=== PATIENT | female | born 1960 | race Caucasian/White ===

== ENCOUNTER 2019-07-09 20:30 | Emergency (ER) | payer BC ==
[2019-07-09] MEDS ORDERED: NS 0.9% 1000 ML** 1,000 ML IV ONE (20:45)
--- NOTE | 2019-07-09 20:53 | ED ---
Syncope/Near Syncope - HPI Summary HPI Summary: 58 year old F brought in by EMS to [facility] accompanied by family members complains of 2 witnessed episodes of syncope this evening while eating dinner at restaurant. States she started to feel nauseous and light headed before her syncopal episodes. No chest pain, headache before them. Family states that during the first episode, she was sitting up in a chair, had syncopal episode, and slid out of her chair (did not hit head). Patient states she also became light headed when standing up before her second syncopal episode. States that similar sx have happened in the past, last time being 20 years ago. States she never figured out why she had these sx. No known shellfish reaction. No hives, shortness of breath. Doesn't eat shellfish usually. Symptoms aggravated by nothing. Symptoms alleviated by nothing. Denies pertinent PMHx.Surgical hx: appendectomy. FHx: father CVA, sister verbala. Denies other pertinent FHx ( specifically no sudden ). Medications reviewed. Allergies reviewed. States she is allergic to Benadryl. - History Of Current Complaint Chief Complaint: EDSyncope Time Seen by Provider: 07/09/19 20:45 Hx Obtained From: Patient Onset/Duration: Lasting Hours, Resolved Timing: Constant Context: Witnessed Aggravating Factor(s): Nothing Alleviating Factor(s): Nothing Associated Signs And Symptoms: Negative - hives, shortness of breath, chest pain , headache, Lightheadedness, Other - nausea - Allergies/Home Medications Allergies/Adverse Reactions: Allergies Allergy/AdvReac Type Severity Reaction Status Date / Time No Known Allergies Allergy Verified 07/09/19 21:00 PMH/Surg Hx/FS Hx/Imm Hx Endocrine/Hematology History: Denies: Hx Anticoagulant Therapy, Hx Diabetes Cardiovascular History: Denies: Hx Hypertension - Surgical History Surgery Procedure, Year, and Place: appendectomy Infectious Disease History: No Infectious Disease History: Denies: Traveled Outside the [place] in Last 30 Days - Family History Known Family History: Positive: Other - CVA father, vera sister Review of Systems Negative: Chest Pain Negative: Shortness Of Breath Positive: Nausea Skin: Negative - hives Neurological: Other - light headedness Positive: Syncope. Negative: Headache All Other Systems Reviewed And Are Negative: Yes Physical Exam - Summary Physical Exam Summary: Constitutional: Well-developed, Well-nourished, Alert. (-) Distressed Skin: Warm, Dry HENT: Normocephalic; Atraumatic Eyes: Conjunctiva normal Neck: Musculoskeletal ROM normal neck. (-) JVD, (-) Stridor, (-) Nuchal rigidity Cardio: Rhythm regular, rate normal, Heart sounds normal; Intact distal pulses; Radial pulses are 2+ and symmetric. (-) Murmur Pulmonary/Chest wall: Effort normal. (-) Respiratory distress, (-) Wheezes, (-) Rales Abd: Soft, (-) tenderness, (-) Distension, (-) Guarding, (-) Rebound Musculoskeletal: (-) Edema Lymph: (-) Cervical adenopathy Neuro: Alert, Oriented x3 Psych: Mood and affect Normal Triage Information Reviewed: Yes Vital Signs On Initial Exam: Initial Vitals Temp Pulse Resp BP Pulse Ox 98.5 F 77 16 144/83 96 07/09/19 20:40 07/09/19 20:40 07/09/19 20:40 07/09/19 20:40 07/09/19 20:40 Vital Signs Reviewed: Yes Procedures - Sedation Patient Received Moderate/Deep Sedation with Procedure: No Diagnostics - Vital Signs Vital Signs Temp Pulse Resp BP Pulse Ox 07/09/19 20:40 98.5 F 77 16 144/83 96 - Laboratory Result Diagrams: 07/09/19 21:00 07/09/19 21:00 Lab Statement: Any lab studies that have been ordered have been reviewed, and results considered in the medical decision making process. - Radiology CXR Radiology Interpretation Completed By: ED Physician Summary of Radiographic Findings: no acute abnormalities. pending official report - EKG 2103 Cardiac Rate: NL - 76 PBM EKG Rhythm: Sinus Rhythm Summary of EKG Findings: An EKG at 21:04 reveals normal sinus rhythm 76 BPM, prolonged QTc at 490. No STEMI. No acute changes. 2128 Cardiac Rate: NL - 82 bpm EKG Rhythm: Sinus Rhythm Summary of EKG Findings: An EKG at 21:29 reveals normal sinus rhythm 82 BPM, borderline prolonged QTc at 422. No STEMI. No acute changes. Re-Evaluation - Re-Evaluation First Eval Re-Evaluation Time: 21:50 Comment: Updated patient on normal lab results and chest x-ray. Discussed with her slightly prolonged QTC and her EKG advised to follow-up with her PCP and cardiology as needed, and return for worsening symptoms or continued passing out. Patient ambulated to restroom. Course/Dx Course Of Treatment: 58 y/o F p/w syncope. Syncope. DDx: most likely vasovagal. Cardiac issue: slightly prolonged qTC to 490 on EKG, electrolytes normal. D/w hospitalist who recommends outpatient PCP f/u. Given cardiology as well and told to follow up with PCP w/i one week for EKG. Mechanical: outflow obstruction like HOCM or aortic stenosis, tamponade-less likely as no murmur, non-exertional, no hypertrophy on EKG. Seizure: no witnessed seizure activity. Hypoxia and hypoglycemia less likely in this patient with normal sats and BG. Vessels: PE, dissection, AAA. Clinical picture inconsistent, no abd pain, no pulsatile mass, symmetric pulses, no risk factors of PE. Volume issue: dehydration from vomiting/diarrhea/decreased PO, sepsis, GI bleed, ruptured ectopic or bleeding AAA. orthostatics positive w EMS, normal here. Neuro: No RANGEL , no personal or family h/o cerebral aneurysm, nml neuro exam, so this is unlikely ICH or sentinel bleed - Diagnoses Provider Diagnoses: Syncope - Physician Notifications Discussed Care of Patient With: Lamine Sheffield Time Discussed With Above Provider: 21:46 Instructed by Provider To: Other - Dr. Sheffield, hospitalist, recommends planning for f/u with primary care provider Discharge ED - Sign-Out/Discharge Documenting (check all that apply): Patient Departure - Discharge - Discharge Plan Condition: Stable Disposition: HOME Patient Education Materials: Syncope (ED) Referrals: Lexy Wasserman MD [Primary Care Provider] - Criss Coreas MD [Medical Doctor] - Additional Instructions: You were seen in the emergency department for passing out. Your labs and x-ray did not show any other maladies. EKG showed a slightly long QTC which you should follow up with your primary care doctor about. If any studies were not completed at the time of discharge you will be called with the relevant results. Please follow up with your primary care doctor in next 2-3 days and return to emergency department for passing out, chest pain, or concerning symptoms. It was a pleasure taking care of you today. - Billing Disposition and Condition Condition: STABLE Disposition: Home - Attestation Statements Document Initiated by Gaelibscott: Yes Documenting Scribe: Heather Quinteros Provider For Whom Isaac is Documenting (Include Credential): Poonam Saleem MD Scribe Attestation: IHeather, scribed for Poonam Saleem MD on 07/09/19 at 2157. Scribe Documentation Reviewed: Yes Provider Attestation: The documentation as recorded by the gaelibHeather chavez accurately reflects the service I personally performed and the decisions made by me, Poonam Saleem MD Status of Scribe Document: Viewed
[2019-07-09 21:08] LABS: ABS Eosinophils 0.5 10^3/ul (0-0.6); ABS Lymphocytes 3.1 10^3/ul (1.0-4.8); ABS Monocytes 0.5 10^3/ul (0-0.8); Eosinophil % 6.6 %; Hematocrit 39 % (35-47); Hemoglobin 13.2 g/dL (12.0-16.0); Lymphocyte % 43.7 %; Mean Corpuscular HGB Conc 34 g/dL (31-36); Mean Corpuscular Hemoglobin 32 pg (27-31); Mean Corpuscular Volume 93 fL (80-97); Mean Platelet Volume 6.1 fL (7.4-10.4); Platelet Count 295 10^3/uL (150-450); Red Blood Count 4.19 10^6 /uL (3.70-4.87); Red Cell Distribution Width 14 % (10-15); White Blood Count 7.1 10^3/uL (3.5-10.8)
[2019-07-09 21:21] LABS: Albumin 3.6 g/dL (3.2-5.2); Calcium 8.6 mg/dL (8.6-10.3); Potassium 3.6 mmol/L (3.5-5.0); Total Bilirubin 0.2 mg/dL (0.2-1.0)
[2019-07-09 21:27] LABS: Albumin/Globulin Ratio 1.4 (1-3); BUN/Creatinine Ratio 24.1 (8-20); EGFR African American 85.4 (>60); EGFR Non-African American 70.6 (>60); Globulin 2.6 g/dL (2-4); Total Protein 6.2 g/dL (6.4-8.9)
[2019-07-09 21:28] LABS: Magnesium 2.1 mg/dL (1.9-2.7)
[2019-07-09 21:53] VITALS: BP 164/89
== END 2019-07-09 21:53 | disposition home or self-care (01) ==
LOC: ED 20:30
DX: R55 Syncope and collapse (principal)
CPT/HCPCS: 36415; 71046; 80053; 83735; 84484; 85025; 93005; 99283